=== PATIENT | male | born 1970 | race Caucasian/White ===

== ENCOUNTER 2021-11-26 04:23 | Day surgery (SDC) | payer OTHER ==
[2021-11-21 17:05] VITALS: BMI 29.5
[2021-11-26] MEDS ORDERED: MIDAZOLAM HCL 2 MG/2 ML SINGLE DOSE VIAL ONE (14:22)
[2021-11-26 18:46] VITALS: BP 132/78; PULSE 68; TEMP 97
== END 2021-11-26 17:50 | disposition home or self-care (01) ==
LOC: JASU-SURG 04:23
PROVIDERS: ATTEND Urology
PROC: 0TF4XZZ Fragmentation in Left Kidney Pelvis, External Approach (ICD-10-PCS; principal; 2021-11-26 12:30)
DX: N20.0 Calculus of kidney (principal)

== ENCOUNTER 2022-07-22 05:22 | Day surgery (SDC) | payer OTHER ==
[2022-07-18 09:36] VITALS: BMI 26.2
[2022-07-22] MEDS ORDERED: KETOROLAC TROMETHAMINE 30 MG/1 ML VIAL ONE (16:32)
[2022-07-22] MEDS ORDERED: MIDAZOLAM HCL 2 MG/2 ML SINGLE DOSE VIAL ONE (16:32)
[2022-07-22] MEDS ORDERED: PROPOFOL 20 ML ONE (16:32)
[2022-07-22 18:10] VITALS: RESP 20
[2022-07-22 19:01] VITALS: BP 110/75; PULSE 72; TEMP 97.2
== END 2022-07-22 18:53 | disposition home or self-care (01) ==
LOC: JASU-SURG 05:22
PROVIDERS: ATTEND Urology
PROC: 0TF4XZZ Fragmentation in Left Kidney Pelvis, External Approach (ICD-10-PCS; principal; 2022-07-22 14:30)
DX: N20.0 Calculus of kidney (principal)

== ENCOUNTER 2023-03-03 04:14 | Day surgery (SDC) | payer OTHER ==
[2023-02-27 12:48] VITALS: BMI 28.5
[2023-03-03 13:19] VITALS: TEMP 97.7
[2023-03-03] MEDS ORDERED: MIDAZOLAM HCL 2 MG/2 ML SINGLE DOSE VIAL ONE (16:01)
[2023-03-03 16:59] VITALS: RESP 18
[2023-03-03 17:30] VITALS: BP 102/67; PULSE 67
== END 2023-03-03 17:37 | disposition home or self-care (01) ==
LOC: JASU-SURG 04:14
PROVIDERS: ATTEND Urology
PROC: 0TF3XZZ Fragmentation in Right Kidney Pelvis, External Approach (ICD-10-PCS; principal; 2023-03-03 15:00)
DX: N20.0 Calculus of kidney (principal)